=== PATIENT | male | born 1990 | race Two or more races ===

== ENCOUNTER 2023-01-18 18:02 | Inpatient (IN) | payer OTHER ==
[2023-01-18 18:48] VITALS: BMI 19.5
[2023-01-18] MEDS ORDERED: LOPERAMIDE HCL 2 MG CAPSULE PO PRN (21:04)
[2023-01-18] MEDS ORDERED: TUBERCULIN PPD 5 TU/0.1ML SYRINGE (IN PATIENT USE ONLY) ID ONE (21:04)
[2023-01-18] MEDS ORDERED: BENZOCAINE/MENTHOL (CHLORASEPTIC ) LOZENGE MM PRN (21:04)
[2023-01-18] MEDS ORDERED: IBUPROFEN 400 MG TABLET (FP) PO PRN (21:04)
[2023-01-18] MEDS ORDERED: IBUPROFEN 600 MG TABLET (FP) PO PRN (21:04)
[2023-01-18] MEDS ORDERED: AMMONIUM LACTATE 12% LOTION 225 GM BOTTLE TP PRN (21:04)
[2023-01-18] MEDS ORDERED: ACETAMINOPHEN 325 MG TABLET (FP) PO PRN (21:04)
[2023-01-18] MEDS ORDERED: COLLOIDAL OATMEAL 1 BAR EACH TP PRN (21:04)
[2023-01-18] MEDS ORDERED: MAG HYDROX/AL HYDROX/SIMETH 30 ML UNIT-DOSE CUP PO PRN (21:04)
[2023-01-18] MEDS ORDERED: NALOXONE HCL (KLOXXADO) 8 MG SPRAY NS PRN (21:04)
[2023-01-18] MEDS ORDERED: MAGNESIUM HYDROX 2400MG/30ML ORAL SUSPENSION 30 ML CUP PO PRN (21:04)
[2023-01-18] MEDS ORDERED: NALOXONE HCL 0.4 MG/ML VIAL IM PRN (21:04)
[2023-01-18] MEDS ORDERED: NICOTINE POLACRILEX 2 MG GUM BUC PRN (21:04)
[2023-01-18] MEDS ORDERED: BENZONATATE 200 MG CAPSULE PO PRN (21:04)
[2023-01-18] MEDS ORDERED: POLYETHYLENE GLYCOL (HEALTHYLAX) 3350 17 GM PACKET PO PRN (21:04)
[2023-01-18] MEDS ORDERED: guaiFENesin 600 MG TABLET.ER (FP) PO PRN (21:04)
[2023-01-19] MEDS ORDERED: TUBERCULIN PPD 5 TU/0.1ML VIAL ID ONE (01:06)
[2023-01-19] MEDS: MELATONIN 5 MG TABLETS PO SCH ×2 (01:12→21:37)
[2023-01-19] MEDS: THIAMINE HCL 100 MG TABLET (FP) PO SCH ×2 (01:12→21:38)
[2023-01-19 02:16] VITALS: RESP 18
[2023-01-19 03:42] LABS: URINE APPEARANCE CLEAR; URINE BILIRUBIN NEGATIVE (NEGATIVE); URINE COLOR YELLOW; URINE GLUCOSE (UA) NEGATIVE (NEGATIVE); URINE KETONE TRACE (NEGATIVE); URINE LEUK ESTERASE NEGATIVE (NEGATIVE); URINE NITRITE NEGATIVE (NEGATIVE); URINE PROTEIN NEGATIVE (NEGATIVE)
[2023-01-19] MEDS: NICOTINE 14 MG/24 HOURS TOPICAL PATCH TD SCH (09:58)
[2023-01-19] MEDS: PRENATAL VITAMINS W/ FOLIC ACID TABLET (FP) PO SCH (09:58)
[2023-01-19 10:59] LABS: HEMATOCRIT 34.6 % (35.4-49); HEMOGLOBIN 11.6 GM/dL (11.7-16.9); MCH 28.3 pg (25.7-33.7); MCHC 33.5 g/dl (32.0-35.9); MEAN CELL VOLUME 84.6 fl (80-96); MEAN PLT VOLUME 9.5 fl (7.5-11.1); PLATELET COUNT 126 10^3/uL (134-434); RBC 4.09 M/mm3 (4.00-5.60); RDW 13.4 % (11.9-15.9)
[2023-01-19 11:03] LABS: POTASSIUM 4.1 mmol/L (3.5-5.1)
[2023-01-19 11:06] LABS: CALCIUM 8.8 mg/dL (8.5-10.1)
[2023-01-19 11:07] LABS: ALBUMIN 3.4 g/dl (3.4-5.0); BLOOD UREA NITROGEN 13.8 mg/dL (7-18)
[2023-01-19 11:10] LABS: CREATININE 0.8 mg/dL (0.55-1.3)
[2023-01-19 11:12] LABS: BILIRUBIN,TOTAL 0.3 mg/dL (0.2-1); TOT PROT 6.4 g/dl (6.4-8.2)
[2023-01-20] MEDS: NICOTINE 14 MG/24 HOURS TOPICAL PATCH TD SCH (09:32)
[2023-01-20] MEDS: PRENATAL VITAMINS W/ FOLIC ACID TABLET (FP) PO SCH (09:32)
[2023-01-20] MEDS: MELATONIN 5 MG TABLETS PO SCH (22:55)
[2023-01-20] MEDS: THIAMINE HCL 100 MG TABLET (FP) PO SCH (22:55)
[2023-01-21] MEDS: PRENATAL VITAMINS W/ FOLIC ACID TABLET (FP) PO SCH (10:02)
[2023-01-21] MEDS: NICOTINE 14 MG/24 HOURS TOPICAL PATCH TD SCH (10:02)
[2023-01-21] MEDS: MELATONIN 5 MG TABLETS PO SCH (21:35)
[2023-01-21] MEDS: THIAMINE HCL 100 MG TABLET (FP) PO SCH (21:36)
[2023-01-22 07:22] VITALS: BP 123/73; PULSE 67; TEMP 97.6
[2023-01-22] MEDS: NICOTINE 14 MG/24 HOURS TOPICAL PATCH TD SCH (09:49)
[2023-01-22] MEDS: PRENATAL VITAMINS W/ FOLIC ACID TABLET (FP) PO SCH (09:49)
== END 2023-01-22 12:40 | disposition left against medical advice (07) | DRG 770 ==
LOC: YASAS 18:02 → Y5N 21:04
PROVIDERS: ADMIT Allergy & Immunology; ATTEND Psychiatry & Neurology Pain Medicine
PROC: HZ42ZZZ Group Counseling for Substance Abuse Treatment, Cognitive-Behavioral (ICD-10-PCS; principal; 2023-01-18)
DX: F14.20 Cocaine dependence, uncomplicated (principal); F12.20 Cannabis dependence, uncomplicated; F17.210 Nicotine dependence, cigarettes, uncomplicated; F20.9 Schizophrenia, unspecified; F31.9 Bipolar disorder, unspecified; Z88.8 Allergy status to other drugs, medicaments and biological substances
CPT/HCPCS: 36415; 80053; 81003; 85027; 86780; 87811; 93005; 93010